=== PATIENT | male | born 1985 | race Hispanic/Latino ===

== ENCOUNTER 2021-12-12 16:01 | Emergency (ER) | payer SELFPAY ==
[~2021-12-12] VITALS: Ht 175.3 cm; Wt 74.8 kg
[2021-12-12] MEDS ORDERED: KETOROLAC TROMETHAMINE 30 MG/ML VIAL IM STA (16:32)
[2021-12-12] MEDS ORDERED: DEXAMETHASONE SOD PHOS 10 MG/1 ML VIAL IM ONE (16:45)
[2021-12-12] MEDS ORDERED: NAPROXEN250 MG PO (16:53)
[2021-12-12 18:19] VITALS: BP 138/78
== END 2021-12-12 18:15 | disposition home or self-care (01) ==
LOC: ER 16:07
DX: M25.562 Pain in left knee (principal); M17.12 Unilateral primary osteoarthritis, left knee; M25.462 Effusion, left knee
CPT/HCPCS: 73552; 73560; 73590; 99283; J1100; J1885